=== PATIENT | female | born 1945 | race Caucasian/White ===

== ENCOUNTER 2025-04-24 16:07 | Inpatient (IN) | payer MEDICARE, MEDICAID ==
[~2025-04-24] VITALS: Ht 160 cm; Wt 44.9 kg
[2025-04-24] MEDS ORDERED: IV NS 0.9% 500 ML BAG IV ONE (16:30)
[2025-04-24] MEDS ORDERED: MAG HYDROX/AL HYDROX/SIMETH 30 ML UDC PO PRN (17:30)
[2025-04-24] MEDS ORDERED: ONDANSETRON HCL/PF 4 MG/2 ML VIAL IVP PRN (17:30)
[2025-04-24] MEDS ORDERED: Z GUARD REMEDY 4 OZ OINT TP PRN (17:30)
[2025-04-24 17:34] LABS: PLATELET COUNT (AUTO) 202 K/uL (150-450); RED BLOOD CELL COUNT(AUTO) 3.27 MIL/uL (4.0-5.2); RED CELL DISTRIBUTION WIDTH 14.3 % (11.5-15.0); WHITE BLOOD COUNT (AUTO) 7.1 K/uL (4.3-11.0)
[2025-04-24 17:41] LABS: CALCIUM, SERUM 9.0 mg/dL (8.5-10.1); CREATININE 1.4 mg/dL (0.6-1.3); SODIUM SERUM 140 mmol/L (136-145); UREA NITROGEN, BLOOD 43 mg/dL (7-18)
[2025-04-24 17:47] LABS: ASPARTATE AMINOTRANSFERASE 16 U/L (15-37); TOTAL PROTEIN, SERUM 6.9 g/dL (6.4-8.2)
[2025-04-24 17:52] LABS: PHOSPHORUS 4.4 mg/dL (2.5-4.9)
[2025-04-24] MEDS ORDERED: HYDR-3972 PO (17:54)
[2025-04-24 21:00] VITALS: BP 134/60; TEMP 98.5; O2SAT 97
[2025-04-25 04:00] VITALS: BP 138/65; TEMP 98.4; O2SAT 97
[2025-04-25 07:54] LABS: PLATELET COUNT (AUTO) 206 K/uL (150-450); RED BLOOD CELL COUNT(AUTO) 3.76 MIL/uL (4.0-5.2); RED CELL DISTRIBUTION WIDTH 14.6 % (11.5-15.0); WHITE BLOOD COUNT (AUTO) 6.8 K/uL (4.3-11.0)
[2025-04-25 08:00] VITALS: BP 176/83; TEMP 98.6; O2SAT 96
[2025-04-25] MEDS: ACETAMINOPHEN 325 MG TABLET PO PRN (08:17)
[2025-04-25 08:24] LABS: CALCIUM, SERUM 8.6 mg/dL (8.5-10.1); CREATININE 1.2 mg/dL (0.6-1.3); PHOSPHORUS 3.6 mg/dL (2.5-4.9); SODIUM SERUM 142.0 mmol/L (136-145); UREA NITROGEN, BLOOD 38.0 mg/dL (7-18)
[2025-04-25] MEDS ORDERED: CLONIDINE HCL 0.1 MG TABLET PO PRN (09:00)
[2025-04-25] MEDS ORDERED: MORPHINE SULFATE INJ 4 MG/ML DISP.SYRIN IV PRN (09:00)
[2025-04-25 16:00] VITALS: BP 121/60; TEMP 98.2; O2SAT 95
[2025-04-25 20:00] VITALS: BP 132/71; TEMP 98.1; O2SAT 98
[2025-04-26 04:00] VITALS: BP 132/71; TEMP 97.8; O2SAT 98
[2025-04-26 07:10] LABS: PLATELET COUNT (AUTO) 237 K/uL (150-450); RED BLOOD CELL COUNT(AUTO) 3.38 MIL/uL (4.0-5.2); RED CELL DISTRIBUTION WIDTH 14.1 % (11.5-15.0); WHITE BLOOD COUNT (AUTO) 6.7 K/uL (4.3-11.0)
[2025-04-26 07:35] LABS: ASPARTATE AMINOTRANSFERASE 10.0 U/L (15-37); CALCIUM, SERUM 8.7 mg/dL (8.5-10.1); CREATININE 1.4 mg/dL (0.6-1.3); PHOSPHORUS 3.8 mg/dL (2.5-4.9); SODIUM SERUM 143.0 mmol/L (136-145); TOTAL PROTEIN, SERUM 6.8 g/dL (6.4-8.2); UREA NITROGEN, BLOOD 39.0 mg/dL (7-18)
[2025-04-26 08:00] VITALS: BP 124/64; TEMP 97.7; O2SAT 97
[2025-04-26 08:00] LABS: CREATINE KINASE, TOTAL 40.0 U/L (26-192)
[2025-04-26 16:00] VITALS: BP 117/64; TEMP 98.1; O2SAT 96
[2025-04-26 20:00] VITALS: BP 99/82; TEMP 98.8; O2SAT 96
[2025-04-27] MEDS: ZOLPIDEM TARTRATE 10 MG TABLET PO PRN (00:45)
[2025-04-27 04:00] VITALS: BP 142/90; TEMP 98.9; O2SAT 98
[2025-04-27] MEDS: MAGNESIUM HYDROXIDE 30 ML UDC PO PRN (07:03)
[2025-04-27 08:00] VITALS: BP 155/79; TEMP 98.6; O2SAT 98
[2025-04-27 16:00] VITALS: BP 125/66; TEMP 98.6; O2SAT 98
[2025-04-27 20:00] VITALS: BP 134/66; TEMP 98.4; O2SAT 98
[2025-04-28 01:11] LABS: PTH, INTACT 27 pg/mL (15-65)
[2025-04-28 04:00] VITALS: BP 150/79; TEMP 98.6; O2SAT 98
[2025-04-28 08:00] VITALS: BP 150/85; TEMP 97.3; O2SAT 98
[2025-04-28] MEDS: HYDROCODONE/APAP 5/325MG TABLET PO PRN (13:14)
[2025-04-28 16:00] VITALS: BP 117/65; TEMP 97.1; O2SAT 99
[2025-04-28 16:07] VITALS: BP 133/74
[2025-04-29 07:07] LABS: *SPE A/G RATIO 0.9 (0.7-1.7); *SPE ALBUMIN 2.9 g/dL (2.9-4.4); *SPE ALPHA-1-GLOBULIN 0.3 g/dL (0.0-0.4); *SPE ALPHA-2-GLOBULIN 0.9 g/dL (0.4-1.0); *SPE BETA GLOBULIN 1.0 g/dL (0.7-1.3); *SPE GLOBULIN, TOTAL 3.2 g/dL (2.2-3.9); *SPE M-SPIKE 0.1 g/dL (Not Observed); *SPE PROTEIN TOTAL 6.1 g/dL (6.0-8.5); *SPEGAMMA GLOBULIN 1.0 g/dL (0.4-1.8)
== END 2025-04-28 17:37 | DRG 542 ==
LOC: ER 16:10 → MEDSG1 20:18
PROVIDERS: ADMIT Internal Medicine; ATTEND Internal Medicine
DX: M48.55XA Collapsed vertebra, not elsewhere classified, thoracolumbar region, initial encounter for fracture (principal); N17.0 Acute kidney failure with tubular necrosis; E44.0 Moderate protein-calorie malnutrition; I10 Essential (primary) hypertension; D64.9 Anemia, unspecified; K51.90 Ulcerative colitis, unspecified, without complications; E87.1 Hypo-osmolality and hyponatremia; E86.0 Dehydration; E86.1 Hypovolemia; Z91.81 History of falling; E88.09 Other disorders of plasma-protein metabolism, not elsewhere classified; Z88.0 Allergy status to penicillin; E87.6 Hypokalemia
CPT/HCPCS: 36415; 71045-TC; 72131-TC; 72146-TC; 72148-TC; 80048-TC; 80053-TC; 80076-TC; 82550-TC; 82962-TC; 83735-TC; 83970; 84100-TC; 84155; 84165; 84443-TC; 84484-TC; 85025-TC; 87081-TC; 97110-TC; 97116-TC; 97530-TC; 97535-TC; G0378; J2270; J7040; Q0163